=== PATIENT | male | born 1985 | race Caucasian/White ===

== ENCOUNTER 2019-12-15 21:39 | Emergency (ER) | payer OTHER ==
[2019-12-15] MEDS ORDERED: methylPREDNISolone Sod Succ/PF 125 MG/2 ML VIAL ONE (21:47)
[2019-12-15] MEDS ORDERED: EPINEPHrine 1 MG/ML AMP ONE ×2 (21:47→22:17)
[2019-12-15] MEDS ORDERED: Famotidine/PF 20 mg/2ml Vial ONE (22:09)
[2019-12-16] MEDS ORDERED: Sodium Chloride 0.9% 1,000 ML ONE (01:39)
== END 2019-12-16 02:49 | disposition home or self-care (01) ==
LOC: NAV ERS 21:39
DX: T78.03XA Anaphylactic reaction due to other fish, initial encounter (principal); J45.909 Unspecified asthma, uncomplicated
CPT/HCPCS: 96361; 96372; 96374; 96375; J0171; J2930; J7050; S0028

== ENCOUNTER 2024-05-16 12:37 | Emergency (ER) | payer BC, OTHER ==
[2024-05-16 13:08] LABS: #Basophils 0.1 thou/uL (0.0-0.2); #Eosinphils 0.1 thou/uL (0.0-0.7); #Lymphocytes 1.7 thou/uL (1.20-3.40); #Monocytes 0.2 thou/uL (0.11-0.59); #Neutrophils 3.3 thou/uL (1.40-6.50); %Basophils 1.2 % (0.0-1.0); %Eosinophils 1.7 % (0.0-10.0); %Lymphocytes 31.9 % (21.0-51.0); %Monocytes 4.1 % (0.0-10.0); %Neutrophils 61.1 % (42.0-75.0); Hemoglobin 14.8 g/dL (14.0-18.0); Mean Corpuscular Hemoglobin 29.9 pg (27.0-31.0); Mean Corpuscular Volume 90.7 fl (78.0-98.0); Platelet Count 150 10x3/uL (130-400); RBC Distribution Width 10.9 % (11.5-14.5); Red Blood Cell (RBC) Count 4.96 mill/uL (4.70-6.10); White Blood Cell (WBC) Count 5.4 10x3/uL (4.8-10.8)
[2024-05-16 13:20] LABS: ALT (SGPT) 95 U/L (8-55); AST (SGOT) 53 U/L (5-34); Albumin 4.4 g/dL (3.5-5.0); Alkaline Phosphatase 86 U/L (40-110); Anion Gap 21 mmol/L (10-20); BUN (Urea Nitrogen) 14 mg/dL (8.9-20.6); Bilirubin, Total 0.7 mg/dL (0.2-1.2); Calc. Creatinine Clearance 0 mL/min (70-130); Carbon Dioxide 16 mmol/L (22-29); Chloride 103 mmol/L (98-107); Estimated GFR 112; Globulin 2.9 g/dL (2.4-3.5); Glucose 279 mg/dL (70-105); Potassium 3.5 mmol/L (3.5-5.1); Protein, Total 7.3 g/dL (6.0-8.3); Sodium 136 mmol/L (136-145)
[2024-05-16 13:26] LABS: Troponin I Less than 0.010 ng/mL (< 0.028)
[2024-05-16 15:18] LABS: Glucose 172 mg/dL (70-105)
== END 2024-05-16 15:46 | disposition home or self-care (01) ==
LOC: NAV ERS 12:37
DX: R07.9 Chest pain, unspecified (principal); F43.0 Acute stress reaction; F41.9 Anxiety disorder, unspecified; I10 Essential (primary) hypertension; Z79.899 Other long term (current) drug therapy
CPT/HCPCS: 71045; 80053; 83880; 84484; 85025; 93005; 94760

== ENCOUNTER 2024-10-18 11:34 | Emergency (ER) | payer BC | END 2024-10-18 13:05 | disposition home or self-care (01) | LOC: NAV ERS 11:34 | DX: S06.9X1A Unspecified intracranial injury with loss of consciousness of 30 minutes or less, initial encounter (principal); S01.01XA Laceration without foreign body of scalp, initial encounter; I10 Essential (primary) hypertension; Z79.899 Other long term (current) drug therapy; W22.8XXA Striking against or struck by other objects, initial encounter | CPT/HCPCS: 12002; 70450; 70486; 72125; 90471 ==

== ENCOUNTER 2024-10-25 07:56 | Emergency (ER) | payer BC | END 2024-10-25 08:15 | disposition home or self-care (01) | LOC: NAV ERS 07:56 | DX: S01.01XD Laceration without foreign body of scalp, subsequent encounter (principal); X58.XXXD Exposure to other specified factors, subsequent encounter ==